=== PATIENT | male | born 1955 | race Caucasian/White ===

== ENCOUNTER 2018-05-15 11:00 | Outpatient (RCR) | payer BC | END 2018-05-16 | LOC: PT 11:00 | PROVIDERS: ATTEND Neurological Surgery | DX: M50.122 Cervical disc disorder at C5-C6 level with radiculopathy (principal); M62.81 Muscle weakness (generalized) ==

== ENCOUNTER → 2018-06-14 | Outpatient (CLI) | payer BC ==
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
== END ==
LOC: NM 08:00
PROVIDERS: ATTEND Specialist
DX: R22.42 Localized swelling, mass and lump, left lower limb (principal)
CPT/HCPCS: 78306; A9503

== ENCOUNTER 2018-06-15 10:00 | Outpatient (RCR) | payer BC | END 2018-06-16 | LOC: PT 10:00 | PROVIDERS: ATTEND Neurological Surgery | DX: M50.122 Cervical disc disorder at C5-C6 level with radiculopathy (principal); M62.81 Muscle weakness (generalized) | CPT/HCPCS: 97139 ==

== ENCOUNTER 2018-06-22 16:44 | Outpatient (RCR) | payer BC | END 2018-07-16 | LOC: PT 16:44 | PROVIDERS: ATTEND Neurological Surgery | DX: M50.122 Cervical disc disorder at C5-C6 level with radiculopathy (principal) ==

== ENCOUNTER → 2018-07-07 | Outpatient (CLI) | payer BC ==
[~2018-07-07] MED LIST: GADOBENATE DIMEGLUMINE 1 ML IV ONE
[2018-07-07 11:22] LABS: BLOOD UREA NITROGEN 15 mg/dL (7-26); BUN/CREATININE RATIO 15 (6-25); CREATININE, SERUM 1.02 mg/dL (0.72-1.25); EST GLOMERULAR FILTRATION RATE > 60 ML/MIN (60-)
--- NOTE | 2018-07-07 12:54 | Diagnostic Imaging Report ---
MRI of the left femur with and without contrast. History: Swelling/mass. Distal left femur mass. Lump. Technique: Multiplanar multisequence MRI of the left femur with and without IV contrast. 20 cc IV gadolinium contrast material was administered Comparison: Nuclear medicine bone scan 06/14/2018 Findings: 5.3 x 2.2 x 1.9 cm heterogeneous signal intensity lesion within the marrow space of the distal shaft of the femur. No associated bone marrow edema, cortical breakthrough or soft tissue component is seen. There is a thick rim of calcification surrounding the majority of this lesion. There is a serpiginous region of increased T2 signal intensity and contrast enhancement along its medial and superior margin. This is best seen on series 6 image 13 and series 8 image 14 through 18. There is a 0.8 cm similar-appearing lesion in the distal lateral aspect of the femur best seen on coronal image 12. There is no acute fracture or dislocation. The visualized neurovascular bundles are intact. The visualized muscles are normal in size, signal intensity and morphology. No ligamentous or tendon tear is seen. Impression: 5.2 cm nonaggressive appearing heterogeneous signal intensity lesion within the marrow space of the distal shaft of the femur could be due to an enchondroma or low-grade cartilaginous tumor. A bone infarct is thought to be less likely. 0.8 cm similar appearing lesion in the distal lateral aspect of the femur. Radiographs of the femur are recommended. Signed by: Dr. Jeancarlos Dolan M.D. on 07/07/2018 12:49 PM
== END ==
LOC: MRI 10:34
PROVIDERS: ATTEND Specialist
DX: R22.42 Localized swelling, mass and lump, left lower limb (principal)
CPT/HCPCS: 36415; 82565; 84520

== ENCOUNTER 2021-03-04 10:18 | Emergency (ER) | payer OTHER ==
[~2021-03-04] VITALS: Ht 172.7 cm; Wt 81.6 kg
[2021-03-04] MEDS ORDERED: KETOROLAC TROMETHAMINE 30 MG/ML VIAL IM STA (10:27)
[2021-03-04] MEDS ORDERED: FENTANYL CITRATE/PF 100MCG/2 ML INJ IJ ONE (10:30)
[2021-03-04] MEDS ORDERED: FENTANYL CITRATE/PF 100MCG/2 ML INJ ONE (10:44)
[2021-03-04] MEDS ORDERED: HYDROCODON-ACE1 EA12 PO (12:06)
[2021-03-04 12:14] VITALS: BP 132/62
== END 2021-03-04 12:15 | disposition home or self-care (01) ==
LOC: ER 10:27
DX: S42.201A Unspecified fracture of upper end of right humerus, initial encounter for closed fracture (principal); S00.83XA Contusion of other part of head, initial encounter; M25.561 Pain in right knee; W01.0XXA Fall on same level from slipping, tripping and stumbling without subsequent striking against object, initial encounter; Y93.01 Activity, walking, marching and hiking; Y92.008 Other place in unspecified non-institutional (private) residence as the place of occurrence of the external cause; I10 Essential (primary) hypertension; E11.9 Type 2 diabetes mellitus without complications; E78.5 Hyperlipidemia, unspecified; E03.9 Hypothyroidism, unspecified
CPT/HCPCS: 29240; 70450; 73030; 73562; 99284; J1885; J3010

== ENCOUNTER → 2021-04-15 | Outpatient (RCR) | payer MEDICARE, OTHER ==
[~2021-04-15] MED LIST changes: -GADOBENATE DIMEGLUMINE 1 ML IV ONE; +HYDROCODON-ACE1 EA12 PO
== END ==
LOC: PT 04-01 13:58
PROVIDERS: ATTEND Physician Assistant
DX: S42.291D Other displaced fracture of upper end of right humerus, subsequent encounter for fracture with routine healing (principal)

== ENCOUNTER 2021-05-13 12:58 | Outpatient (RCR) | payer MEDICARE | END 2021-05-16 | LOC: PT 12:58 | PROVIDERS: ATTEND Physician Assistant | DX: S42.291D Other displaced fracture of upper end of right humerus, subsequent encounter for fracture with routine healing (principal); M25.511 Pain in right shoulder; M25.611 Stiffness of right shoulder, not elsewhere classified; M62.81 Muscle weakness (generalized) | CPT/HCPCS: 97139 ==

== ENCOUNTER 2021-06-15 09:57 | Outpatient (RCR) | payer MEDICARE | END 2021-06-16 | LOC: PT 09:57 | PROVIDERS: ATTEND Physician Assistant | DX: S42.291D Other displaced fracture of upper end of right humerus, subsequent encounter for fracture with routine healing (principal) | CPT/HCPCS: 97139 ==

== ENCOUNTER 2021-07-15 12:59 | Outpatient (RCR) | payer MEDICARE | END 2021-07-16 | LOC: PT 12:59 | PROVIDERS: ATTEND Physician Assistant | DX: S42.291D Other displaced fracture of upper end of right humerus, subsequent encounter for fracture with routine healing (principal) ==

== ENCOUNTER 2021-08-10 13:00 | Outpatient (RCR) | payer MEDICARE | END 2021-08-16 | LOC: PT 13:00 | PROVIDERS: ATTEND Physician Assistant | DX: S42.291D Other displaced fracture of upper end of right humerus, subsequent encounter for fracture with routine healing (principal) | CPT/HCPCS: 97139 ==

== ENCOUNTER → 2022-04-08 | Outpatient (CLI) | payer MEDICARE ==
[~2022-04-08] MED LIST changes: +ACETAMINOPHEN-1 EAC4 PO; +ATORVASTATIN CA20 MG PO; +CYMBALTA30 MG; +GABAPENTIN600 MG; +JARDIANCE25 MG; +LEVOTHYROXINE88 MCG PO; +LOSARTAN POTAS100 MG PO; +METFORMIN HCL500 MG PO; +OZEMPIC0.25 MG/0. SC; +TESTOSTERONE25 GM; +TRESIBA100 UNIT/1
== END ==
LOC: RAD 12:15
PROVIDERS: ATTEND Internal Medicine
DX: M17.11 Unilateral primary osteoarthritis, right knee (principal); M16.11 Unilateral primary osteoarthritis, right hip